=== PATIENT | male | born 1955 | race Caucasian/White ===

== ENCOUNTER 2020-07-25 18:48 | Outpatient (CLI) | payer OTHER, SELFPAY ==
--- NOTE | ~2020-07-25 | XR_ITS ---
EXAMINATION: XR chest 2V DATE: 07/25/2020 19:15 INDICATION: COVID 19 positive. Chest pain. TECHNIQUE: frontal and lateral views of the chest were obtained. COMPARISON: None FINDINGS: Airspace opacities in the posterior basilar right lower lobe. No other airspace opacities, pulmonary edema, pleural effusion or pneumothorax. The cardiomediastinal silhouette is normal. Mild to moderate thoracic spondylosis. IMPRESSION: 1. Airspace opacities in the posterior basilar right lower lobe which could represent pneumonia, atel ectasis or combination thereof. Reviewed, dictated and finalized at location H. ETING STRATEGIST IMPRESSION: 1. Airspace opacities in the posterior basilar right lower lobe which could rep resent pneumonia, atelectasis or combination thereof.
== END 2020-07-25 18:49 ==
LOC: MICIMG 18:50
PROVIDERS: PCP Emergency Medicine; Visit Provider Emergency Medicine
DX: R07.89 Other chest pain (principal); R91.8 Other nonspecific abnormal finding of lung field
CPT/HCPCS: 71046